=== PATIENT | female | born 1995 | race Caucasian/White ===

== ENCOUNTER 2017-02-28 13:55 | Emergency (ER) | payer OTHER ==
[~2017-02-28] VITALS: Ht 157.5 cm; Wt 56.3 kg
[~2017-02-28 13:55] MED LIST: LOW-OGESTREL1 TABLET PO; ZOFRAN ODT4 MG PO
[2017-02-28 15:19] LABS: ADD MIUA? NO; BILIRUBIN NEGATIVE; BLOOD NEGATIVE; COLOR YELLOW ((YELLOW)); GLUCOSE (STRIP) NEGATIVE; KETONES NEGATIVE; LEUKOCYTES NEGATIVE; NITRITE NEGATIVE; PROTEIN (STRIP) NEGATIVE; SPECIFIC GRAVITY 1.014 (1.000-1.030); UCUL ADDED? NO; UROBILINOGEN 0.2 MG/DL (0.2-1.0)
[2017-02-28 15:19] LABS: HEMATOCRIT 41.8 % (36.0-46.0); MCH 29.2 PG (29.0-34.0); MCHC 33.5 G/DL (30.0-36.0); MCV 87.1 FL (83-99); MEAN PLAT.VOLUME 11.4 uM^3 (9.5-12.4); PLATELET COUNT 185 K/uL (156-360); RBC DIS.WIDTH-CV 11.5 % (11.8-14.6); RBC DIS.WIDTH-SD 37.1 % (39-53); WHITE BLOOD COUNT 8.2 K/uL (4.1-10.2)
[2017-02-28 15:33] LABS: CHLORIDE 106 mEq/L (99-109); SODIUM 141 mEq/L (136-147)
[2017-02-28 15:35] LABS: GLUCOSE 83 mg/dL (70-99)
[2017-02-28 15:36] LABS: ANION GAP 9 MEQ/L (2-14)
[2017-02-28 15:37] LABS: TOTAL BILIRUBIN 1.2 mg/dL (0.0-1.0)
[2017-02-28 15:38] LABS: ALKALINE PHOSPHATASE 61 IU/L (3-129)
[2017-02-28 15:39] LABS: GFR ESTIMATE (CALCULATED) > 59 mL/min/
[2017-02-28 15:40] LABS: UREA NITROGEN (BUN) 10 mg/dL (9-23)
[2017-02-28 15:42] LABS: LIPASE 22 U/L (1.0-51.0)
[2017-02-28 15:49] LABS: QUANTITATIVE HCG < 4.0 MIU/ML
[2017-02-28] MEDS ORDERED: ZOFRAN ODT4 MG PO (18:45)
[2017-02-28] MEDS ORDERED: BENTYL10 MG PO (18:45)
[2017-02-28 18:56] VITALS: BP 143/100
[2017-03-01] MEDS ORDERED: MOTRIN600 MG PO (08:54)
== END 2017-02-28 18:57 | disposition home or self-care (01) ==
LOC: EME 13:55
DX: R10.30 Lower abdominal pain, unspecified (principal); N83.202 Unspecified ovarian cyst, left side; N83.201 Unspecified ovarian cyst, right side; F32.9 Major depressive disorder, single episode, unspecified
CPT/HCPCS: 74176; 74177; 80053; 81003; 83690; 84702; 85027; 99281; 99283; J1885; J7030

== ENCOUNTER 2017-03-01 07:18 | Emergency (ER) | payer OTHER ==
[~2017-03-01] VITALS: Ht 160 cm; Wt 56.6 kg
[~2017-03-01 07:18] MED LIST changes: +BENTYL10 MG PO
[2017-03-01] MEDS ORDERED: MOTRIN600 MG PO (08:54)
[2017-03-01 10:50] VITALS: BP 120/86
[2017-03-02 12:08] LABS: CHLAMYDIA TRACHOMATIS NEGATIVE; NEISSERIA GONORRHOEAE NEGATIVE
== END 2017-03-01 10:51 | disposition home or self-care (01) ==
LOC: EME 07:18
PROVIDERS: Emergency Medicine
DX: N83.201 Unspecified ovarian cyst, right side (principal); R11.0 Nausea
CPT/HCPCS: 76856; 87491; 87591; 93975; 99281; 99284; J2270